=== PATIENT | female | born 1965 | race Caucasian/White ===

== ENCOUNTER 2019-07-30 11:13 | Inpatient (IN) ==
[2019-07-30] MEDS ORDERED: CeFAZolin Syr 2,000MG/20 ML 2,000 MG/20 ML SYRINGE IVPB ONE (12:02)
[2019-07-30] MEDS ORDERED: Ringers Solution, Lactated 1,000 ML IVC SCH ×2 (12:15→18:31)
[2019-07-30] MEDS ORDERED: *HR* Promethazine 25 MG/ML VIAL IVP PRN (12:18)
[2019-07-30] MEDS ORDERED: *HR* HYDROmorphone PF 0.5 MG/0.5 ML SYRINGE IVP PRN (12:18)
[2019-07-30] MEDS ORDERED: *HR* OxyCODONE Immed Rel 5 MG TABLET PO PRN (12:18)
[2019-07-30] MEDS ORDERED: Ondansetron 4 MG/2 ML VIAL IVP ONE (12:18)
[2019-07-30] MEDS ORDERED: Lidocaine -MPF 2% 2 ML VIAL ONE (14:53)
[2019-07-30] MEDS ORDERED: *HR* FentaNYL (PF) 100 MCG/2 ML VIAL ONE (14:53)
[2019-07-30] MEDS ORDERED: *HR* Propofol 200 MG/20 ML VIAL IVP ONE (14:53)
[2019-07-30] MEDS ORDERED: *HR* Midazolam HCl 2 MG/2 ML VIAL ONE (14:53)
[2019-07-30] MEDS ORDERED: *HR* Succinylcholine 200 MG/10 ML VIAL IVP ONE (14:53)
[2019-07-30] MEDS ORDERED: Lidocaine HCL 4 ML Topical Solution (Laryng-O-Jet Kit Sterile Pak) TP ONE (14:55)
[2019-07-30] MEDS ORDERED: Ethanol\\Acetic Acid\\Na Ace\\Ben 1,000 ML IRRIG.SOLN IR ONE (15:56)
[2019-07-30] MEDS ORDERED: Vancomycin 1,000 MG VIAL ONE (15:56)
[2019-07-30] MEDS ORDERED: Ropivacaine/PF 0.5% 30 ML VIAL ONE (16:01)
[2019-07-30] MEDS ORDERED: ROPIVACAINE/PF/NS 0.25% 1 EACH SYRINGE INTRAART ONE (16:02)
[2019-07-30] MEDS ORDERED: Ondansetron 4 MG/2 ML VIAL ONE (16:37)
[2019-07-30] MEDS ORDERED: Dexamethasone 4 MG/ML VIAL ONE (16:37)
[2019-07-30] MEDS ORDERED: *HR* Enoxaparin 30 MG/0.3 ML SYRINGE SQ SCH (18:00)
[2019-07-30 18:19] LABS: Hematocrit 41.8 % (35.3-44.9); Hemoglobin 13.8 g/dL (11.5-15.4)
[2019-07-30] MEDS ORDERED: traZODone 50 MG TABLET PO PRN (18:31)
[2019-07-30] MEDS ORDERED: *HR* OxyCODONE/APAP 5/325 TABLET PO PRN (18:31)
[2019-07-30] MEDS ORDERED: tiZANidine 4 MG TABLET PO PRN (18:31)
[2019-07-30] MEDS ORDERED: Ondansetron 4 MG/2 ML VIAL IVP PRN (18:31)
[2019-07-30] MEDS ORDERED: Sennosides 8.6 MG TABLET PO PRN (18:31)
[2019-07-30] MEDS ORDERED: Naloxone 0.4 MG/ML INJ IVP PRN (18:31)
[2019-07-30] MEDS ORDERED: Dextrose Gel 15 GM/37.5 ML TUBE PO PRN ×2 (18:31)
[2019-07-30] MEDS ORDERED: MOM Conc 10 ML UD.LIQ PO PRN (18:31)
[2019-07-30] MEDS ORDERED: CeFAZolin 2 GM/120 ML BAG IVPB SCH (18:31)
[2019-07-30] MEDS ORDERED: *HR* Dextrose 50 % in Water (Vial) 50 ML VIAL IVP PRN (18:31)
[2019-07-30] MEDS ORDERED: D5% in Water 1,000 ML IVC PRN (18:31)
[2019-07-30] MEDS: Gabapentin 300 MG CAPSULE PO SCH ×2 (19:00→21:18)
[2019-07-30] MEDS: Insulin LISPRO 300 UNITS/3 ML VIAL SQ SCH ×2 (20:25→21:15)
[2019-07-31] MEDS: CeFAZolin 2 GM/120 ML BAG IVPB SCH ×2 (01:45→09:41)
[2019-07-31] MEDS: *HR* OxyCODONE Immed Rel 5 MG TABLET PO PRN ×5 (01:51→21:54)
[2019-07-31] MEDS: *HR* Enoxaparin 30 MG/0.3 ML SYRINGE SQ SCH ×2 (06:49→17:58)
[2019-07-31 07:57] LABS: Hematocrit 37.8 % (35.3-44.9); Hemoglobin 12.6 g/dL (11.5-15.4)
[2019-07-31] MEDS: Insulin LISPRO 300 UNITS/3 ML VIAL SQ SCH ×4 (08:17→21:52)
[2019-07-31 08:19] LABS: BUN/Creatinine Ratio 21 (6-26); Blood Urea Nitrogen 19 mg/dL (6-20); Calcium 9.3 mg/dL (8.6-10.3); Carbon Dioxide 23 mEq/L (23-29); Chloride 108 mEq/L (98-107); Glucose 113 mg/dL (70-105); Osmolality,Calculated 291 (280-300); Potassium 4.5 mEq/L (3.5-5.1); Sodium 139 mEq/L (136-145); eGFR For African Americans > 60 (> 60); eGFR For Non-African Americans > 60 (> 60)
[2019-07-31] MEDS: ARIPiprazole 10 MG TABLET PO SCH (09:33)
[2019-07-31] MEDS: lamoTRIgine 100 MG TABLET PO SCH (09:33)
[2019-07-31] MEDS: Gabapentin 300 MG CAPSULE PO SCH ×3 (09:34→21:54)
[2019-07-31] MEDS ORDERED: Acetaminophen IV 1,000 MG/100 ML INFUS..BTL IVPB ONE (10:33)
[2019-07-31] MEDS: tiZANidine 4 MG TABLET PO SCH ×2 (13:43→21:55)
[2019-07-31] MEDS: Ketorolac 15 MG/ML VIAL IVP PRN (15:10)
[2019-08-01] MEDS: Ketorolac 15 MG/ML VIAL IVP PRN ×2 (00:53→16:21)
[2019-08-01] MEDS: *HR* OxyCODONE Immed Rel 5 MG TABLET PO PRN ×4 (03:00→18:45)
[2019-08-01 03:40] LABS: Hematocrit 34.4 % (35.3-44.9)
[2019-08-01 03:41] LABS: BUN/Creatinine Ratio 20 (6-26); Blood Urea Nitrogen 21 mg/dL (6-20); Calcium 8.5 mg/dL (8.6-10.3); Carbon Dioxide 27 mEq/L (23-29); Chloride 106 mEq/L (98-107); Glucose 108 mg/dL (70-105); Osmolality,Calculated 290 (280-300); Potassium 4.5 mEq/L (3.5-5.1); Sodium 138 mEq/L (136-145); eGFR For African Americans > 60 (> 60); eGFR For Non-African Americans 54 (> 60)
[2019-08-01 03:44] LABS: Hemoglobin 10.8 g/dL (11.5-15.4)
[2019-08-01] MEDS: *HR* Enoxaparin 30 MG/0.3 ML SYRINGE SQ SCH ×2 (06:37→18:42)
[2019-08-01] MEDS: Gabapentin 300 MG CAPSULE PO SCH ×2 (07:50→16:23)
[2019-08-01] MEDS: lamoTRIgine 100 MG TABLET PO SCH (07:51)
[2019-08-01] MEDS: ARIPiprazole 10 MG TABLET PO SCH (07:51)
[2019-08-01] MEDS: Insulin LISPRO 300 UNITS/3 ML VIAL SQ SCH ×3 (07:53→16:42)
[2019-08-01] MEDS: tiZANidine 4 MG TABLET PO SCH ×2 (07:53→16:23)
[2019-08-01 16:48] VITALS: BP 134/85
== END 2019-08-01 19:15 | DRG 483 ==
LOC: SAMDAY 11:13 → 3NENU 14:15
PROVIDERS: ADMIT Orthopaedic Surgery; ATTEND Orthopaedic Surgery